=== PATIENT | female | born 1960 | race Caucasian/White ===

== ENCOUNTER 2018-07-24 14:10 | Outpatient (CLI) | payer BC ==
--- NOTE | 2018-07-24 15:59 | RAD ---
RIGHT WRIST THREE VIEWS: HISTORY: Right wrist pain. FINDINGS: Scaphoid waist and ulnar styloid are intact. A subcortical cyst is noted within the lateral aspect o f the distal radius. No acute fracture, dislocation, or aggressive osseous erosions. IMPRESSION: Degenerative changes. No acute osseous abnormalities are demonstrated. POS: [id number]
== END 2018-07-24 14:11 | disposition home or self-care (01) ==
LOC: BICRAD 14:10
PROVIDERS: ATTEND Family Medicine
DX: M25.531 Pain in right wrist (principal); M19.031 Primary osteoarthritis, right wrist

== ENCOUNTER 2019-03-05 13:50 | Outpatient (CLI) | payer BC ==
[2019-03-05 15:07] LABS: #Basophils 0.1 thou/uL (0.0-0.2); #Eosinphils 0.3 thou/uL (0.0-0.7); #Lymphocytes 2.8 thou/uL (1.20-3.40); #Monocytes 0.8 thou/uL (0.11-0.59); %Basophils 1.1 % (0.0-1.0); %Eosinophils 2.3 % (0.0-10.0); %Lymphocytes 25.5 % (21.0-51.0); %Monocytes 7.6 % (0.0-10.0); %Neutrophils 63.4 % (42.0-75.0); Hemoglobin 14.5 g/dL (12.0-16.0); Mean Corpuscular Hemoglobin 29.1 pg (27.0-31.0); Mean Corpuscular Volume 88.3 fL (78.0-98.0); Mean Platelet Volume 8.8 fL (7.4-10.4); Platelet Count 245 thou/uL (130-400); RBC Distribution Width 12.6 % (11.5-14.5); Red Blood Cell (RBC) Count 4.99 mill/uL (4.20-5.40)
== END 2019-03-05 13:51 | disposition home or self-care (01) ==
LOC: LABBT 13:50
PROVIDERS: ATTEND Orthopaedic Surgery Hand Surgery
DX: Z01.818 Encounter for other preprocedural examination (principal); M65.4 Radial styloid tenosynovitis [de Quervain]
CPT/HCPCS: 85025; 93005; 93010

== ENCOUNTER 2019-03-06 05:31 | Day surgery (SDC) | payer BC ==
[2019-03-05 14:11] VITALS: BMI 40.0
[2019-03-06] MEDS ORDERED: Fentanyl 100 MCG/2 ML VIAL ONE (06:12)
[2019-03-06] MEDS ORDERED: Betamet Acet/Betamet Na Ph 30 MG/5 ML VIAL ONE (06:31)
[2019-03-06] MEDS ORDERED: Bupivacaine PF 0.5% 30 ML VIAL ONE (06:31)
[2019-03-06] MEDS ORDERED: Bacitracin Zinc Ointment 30 gm TUBE ONE (06:42)
[2019-03-06] MEDS ORDERED: Ketorolac Tromethamine 30 MG/ML VIAL ONE (08:45)
[2019-03-06] MEDS ORDERED: Ondansetron PF 4 MG/2 ML Vial ONE (14:11)
[2019-03-06] MEDS ORDERED: Lidocaine 1% PF 5 ML VIAL ONE (14:11)
[2019-03-06] MEDS ORDERED: PROPOFOL 200 MG/20 ML VIAL ONE (14:11)
[2019-03-06] MEDS ORDERED: Dexamethasone 20 MG/5 ML VIAL ONE (14:11)
[2019-03-06] MEDS ORDERED: ePHEDrine 50 MG/ML VIAL ONE (14:11)
--- NOTE | 2019-03-06 14:39 | OP ---
DATE OF PROCEDURE: 03/06/2019 PREOPERATIVE DIAGNOSES: 1. Tendonitis, right first dorsal compartment. 2. Right tenosynovium, edema, and synovitis. FINDINGS: 1. Tendonitis, right first dorsal compartment. 2. Right tenosynovium, edema, and synovitis. 3. Three sleeves of abductor pollicis longus. 4. Separate extensor pollicis brevis compartment and tenosynovitis. 5. . PROCEDURES PERFORMED: 1. First dorsal compartment release/de Quervain release. 2. Tenosynovectomy, extensor tendons, radical, all within the first dorsal compartment. SPECIMEN SENT: Tenosynovium sample and tenosynovectomy. INDICATION: Pain, swelling, edema, had injection therapy, ultrasound no response. TOURNIQUET TIME: 14 minutes. ESTIMATED BLOOD LOSS: Less than 5 mL. DESCRIPTION OF PROCEDURE: After successful general LMA technique, the limb was prepped and draped. Time-out was done appropriately, and the site, side, and listed procedure, all matched the history and physical. The patient had the limb exsanguinated, tourniquet inflated to 250 mmHg pressure, zigzag incision outlined over the first dorsal compartment, where there was a marked thickening and prominence. We then injected with 10 mL of 0.5% Marcaine. We then carried the incision through skin and subcutaneous tissue and found all branches of superficial radial nerve, dissected bluntly away from the center of the field and then found a very thick first dorsal compartment. There was bulging tenosynovium through the edge of the first dorsal compartment. Released the first dorsal compartment in its midline, leaving a large volar flap with a [place] blade. Then, we saw the 3 very thickened tenosynoviums surround the sleeves of the abductor pollicis. We did a radical extensor tenosynovectomy here. We inspected and found the extensor pollicis brevis and a separate compartment slightly more dorsal, so we released this compartment with [place] blade and under direct visualization. We then released the tourniquet, obtained hemostasis, closed the wound with interrupted 4-0 nylon in a simple pattern. The patient left the operating room without evidence of anesthetic or operative complications. Job ID: [id number]
== END 2019-03-06 10:15 | disposition home or self-care (01) ==
LOC: SDC 05:31
PROVIDERS: ATTEND Orthopaedic Surgery Hand Surgery
PROC: 0LT70ZZ Resection of Right Hand Tendon, Open Approach (ICD-10-PCS; principal; 2019-03-06)
PROC: 0LN50ZZ Release Right Lower Arm and Wrist Tendon, Open Approach (ICD-10-PCS; principal; 2019-03-06)
DX: M65.4 Radial styloid tenosynovitis [de Quervain] (principal); F32.9 Major depressive disorder, single episode, unspecified; Z79.52 Long term (current) use of systemic steroids; Z79.899 Other long term (current) drug therapy
CPT/HCPCS: 88305; J0690; J0702; J1100; J1885; J2001; J2405; J2704; J3010; J3490; S0020

== ENCOUNTER 2021-06-01 15:41 | Outpatient (CLI) | payer BC | END 2021-06-01 15:42 | disposition home or self-care (01) | LOC: BICMAMMO 15:41 | PROVIDERS: ATTEND Family Medicine | DX: Z12.31 Encounter for screening mammogram for malignant neoplasm of breast (principal) | CPT/HCPCS: 77063; 77067 ==

== ENCOUNTER 2023-07-04 10:40 | Outpatient (CLI) | payer BC | END 2023-07-04 10:41 | disposition home or self-care (01) | LOC: BICMAMMO 10:40 | PROVIDERS: ATTEND Family Medicine | DX: Z12.31 Encounter for screening mammogram for malignant neoplasm of breast (principal) | CPT/HCPCS: 77063; 77067 ==

== ENCOUNTER 2025-05-15 09:31 | Outpatient (CLI) | payer BC | END 2025-05-15 09:32 | disposition home or self-care (01) | LOC: BICMAMMO 09:31 | PROVIDERS: ATTEND Family Medicine | DX: Z12.31 Encounter for screening mammogram for malignant neoplasm of breast (principal) | CPT/HCPCS: 77063; 77067 ==